=== PATIENT | female | born 1985 | race Caucasian/White ===

== ENCOUNTER 2021-06-29 13:00 | Inpatient (IN) | payer OTHER ==
[2021-07-03 11:08] VITALS: BMI 24.4
[2021-07-04] MEDS ORDERED: Ketorolac Tromethamine 30 MG/ML VIAL ONE (06:59)
[2021-07-04] MEDS ORDERED: cefOXitin Sodium/Dextrose 2 GM/50 ML BAG ONE (06:59)
[2021-07-04] MEDS ORDERED: Acetaminophen 500 MG TAB ONE (06:59)
[2021-07-04] MEDS ORDERED: Scopolamine 1.5 mg/72 hour Patch ONE (08:01)
[2021-07-04] MEDS ORDERED: Fentanyl 100 MCG/2 ML VIAL ONE (08:32)
[2021-07-04] MEDS ORDERED: Midazolam HCl 2 mg/2 ml Vial ONE (08:32)
[2021-07-04] MEDS ORDERED: Fentanyl 250 MCG/5 ML VIAL ONE (08:54)
[2021-07-04] MEDS ORDERED: PROPOFOL 200 MG/20 ML VIAL ONE (08:55)
[2021-07-04] MEDS ORDERED: Dexamethasone 20 MG/5 ML VIAL ONE (08:55)
[2021-07-04] MEDS ORDERED: Rocuronium Bromide 10 MG/ML (10ML VIAL) ONE (08:55)
[2021-07-04] MEDS ORDERED: Bupivacaine HCl 0.5%/Epinephrine 1:200,000/PF 30 ml Vial ONE (08:55)
[2021-07-04] MEDS ORDERED: Lidocaine 1% PF 5 ML VIAL ONE (08:55)
[2021-07-04] MEDS ORDERED: diphenhydrAMINE 50 MG/ML VIAL ONE (08:55)
[2021-07-04] MEDS ORDERED: Lidocaine 1% w/Epinephrine 1:100K 20 ML VIAL ONE (09:12)
[2021-07-04] MEDS ORDERED: SUGAMMADEX SODIUM 200 MG/2 ML VIAL ONE (10:14)
[2021-07-04] MEDS ORDERED: ceFOXitin 1 GM VIAL ONE (10:54)
[2021-07-04] MEDS ORDERED: hydrALAZINE 20 MG/ML VIAL SLOW IVP PRN (12:13)
[2021-07-04] MEDS ORDERED: Morphine 4 MG/ML VIAL SLOW IVP PRN (12:13)
[2021-07-04] MEDS ORDERED: Promethazine HCl 25 MG/ML VIAL IM PRN ×2 (12:13→12:26)
[2021-07-04] MEDS ORDERED: Morphine 2 MG/ML VIAL SLOW IVP PRN (12:13)
[2021-07-04] MEDS ORDERED: Ondansetron PF 4 MG/2 ML Vial IVP PRN (12:13)
[2021-07-04] MEDS ORDERED: Ketorolac Tromethamine 30 MG/ML VIAL IVP PRN (12:26)
[2021-07-04] MEDS ORDERED: Meperidine HCl/PF 25 MG/ML VIAL SLOW IVP PRN (12:26)
[2021-07-04] MEDS ORDERED: Ondansetron HCl/PF 4 MG/2 ML Vial IVP PRN (12:26)
[2021-07-04] MEDS ORDERED: HYDROmorphone 2 MG/ML VIAL SLOW IVP PRN (12:26)
[2021-07-04] MEDS ORDERED: Promethazine HCl 25 MG/ML VIAL IVPB PRN (12:26)
[2021-07-04] MEDS ORDERED: D5 1/2 NS w/20 mEq KCL 1,000 ML ONE (13:39)
[2021-07-04] MEDS ORDERED: Morphine 4 MG/ML VIAL ONE (13:48)
[2021-07-04] MEDS: Ketorolac Tromethamine 30 MG/ML VIAL IVP SCH ×2 (18:43→23:30)
[2021-07-04] MEDS: D5 1/2 NS w/20 mEq KCL 1,000 ML IV SCH ×2 (18:44→20:23)
[2021-07-04] MEDS: Famotidine/PF 20 mg/2ml Vial SLOW IVP SCH (20:24)
[2021-07-04] MEDS: Enoxaparin Sodium 40 MG/0.4 ML SYRINGE SC SCH (20:24)
[2021-07-04] MEDS: Famotidine 20 MG TAB PO SCH (21:01)
[2021-07-05] MEDS ORDERED: HYDROcodone/Acetaminophen 7.5/325 mg Tablet PO PRN ×3 (00:11→09:07)
[2021-07-05] MEDS: HYDROcodone/Acetaminophen 7.5/325 mg Tablet PO PRN ×5 (00:33→23:18)
[2021-07-05 06:13] LABS: Hemoglobin 10.6 g/dL (12.0-16.0); Mean Corpuscular HGB CONC 33.4 g/dL (32.0-36.0); Mean Corpuscular Hemoglobin 31.2 pg (27.0-31.0); Mean Corpuscular Volume 93.3 fL (78.0-98.0); Mean Platelet Volume 7.6 fL (7.4-10.4); Platelet Count 184 thou/uL (130-400); RBC Distribution Width 12.1 % (11.5-14.5); Red Blood Cell (RBC) Count 3.39 mill/uL (4.20-5.40); White Blood Cell (WBC) Count 14.5 thou/uL (4.8-10.8)
[2021-07-05] MEDS: Ketorolac Tromethamine 30 MG/ML VIAL IVP SCH ×4 (06:22→23:23)
[2021-07-05 06:27] LABS: Anion Gap 7 mmol/L (10-20); BUN (Urea Nitrogen) 5 mg/dL (7.0-18.7); Calc. Creatinine Clearance 111 mL/min (70-130); Carbon Dioxide 25 mmol/L (22-29); Chloride 108 mmol/L (98-107); Glucose 156 mg/dL (70-105); Potassium 4.2 mmol/L (3.5-5.1); Sodium 136 mmol/L (136-145)
[2021-07-05] MEDS: D5 1/2 NS w/20 mEq KCL 1,000 ML IV SCH ×4 (06:27→23:20)
[2021-07-05 06:32] LABS: Band 9 % (5-11); Lymphocytes 13 % (21-51); MDiff Complete? YES; Monocytes 8 % (0-10); Neutrophil 70 % (42-75)
[2021-07-05] MEDS: Famotidine 20 MG TAB PO SCH ×2 (08:20→20:36)
[2021-07-05] MEDS: Famotidine/PF 20 mg/2ml Vial SLOW IVP SCH ×2 (08:21→22:23)
[2021-07-05] MEDS: Enoxaparin Sodium 40 MG/0.4 ML SYRINGE SC SCH (20:36)
[2021-07-06] MEDS: Ketorolac Tromethamine 30 MG/ML VIAL IVP SCH ×2 (04:58→12:21)
[2021-07-06 06:08] LABS: #Eosinphils 0.1 thou/uL (0.0-0.7); #Lymphocytes 3.1 thou/uL (1.20-3.40); #Monocytes 1.3 thou/uL (0.11-0.59); #Neutrophils 4.7 thou/uL (1.40-6.50); %Basophils 0.3 % (0.0-1.0); %Eosinophils 0.7 % (0.0-10.0); %Lymphocytes 33.9 % (21.0-51.0); %Monocytes 14.4 % (0.0-10.0); %Neutrophils 50.8 % (42.0-75.0); Hemoglobin 9.5 g/dL (12.0-16.0); Mean Corpuscular HGB CONC 33.3 g/dL (32.0-36.0); Mean Corpuscular Hemoglobin 31.8 pg (27.0-31.0); Mean Corpuscular Volume 95.5 fL (78.0-98.0); Mean Platelet Volume 7.5 fL (7.4-10.4); Platelet Count 159 thou/uL (130-400); RBC Distribution Width 12.3 % (11.5-14.5); Red Blood Cell (RBC) Count 2.98 mill/uL (4.20-5.40); White Blood Cell (WBC) Count 9.2 thou/uL (4.8-10.8)
[2021-07-06] MEDS: Famotidine/PF 20 mg/2ml Vial SLOW IVP SCH (08:08)
[2021-07-06] MEDS: Famotidine 20 MG TAB PO SCH (08:10)
[2021-07-06] MEDS ORDERED: D5 1/2 NS w/20 mEq KCL 1,000 ML IV SCH (09:15)
[2021-07-06 12:02] VITALS: BP 114/72; TEMP 98.6
[2021-07-06] MEDS: HYDROcodone/Acetaminophen 7.5/325 mg Tablet PO PRN (12:53)
== END 2021-07-06 13:10 | disposition home or self-care (01) | DRG 330 ==
LOC: SURG A 07-04 06:49 → SJJU 07-04 16:17
PROVIDERS: ADMIT Specialist; ATTEND Specialist
PROC: 0DBN4ZZ Excision of Sigmoid Colon, Percutaneous Endoscopic Approach (ICD-10-PCS; principal; 2021-07-04)
PROC: 0DBP4ZZ Excision of Rectum, Percutaneous Endoscopic Approach (ICD-10-PCS; 2021-07-04)
DX: N80.5 Endometriosis of intestine (principal); D62 Acute posthemorrhagic anemia; K63.5 Polyp of colon; Z79.899 Other long term (current) drug therapy
CPT/HCPCS: 36415; 80048; 85025; 88307; 88313; 88341; 88342; J0694; J1100; J1200; J1650; J1885; J2250; J2270; J2704; J3010; J3480; S0028